=== PATIENT | female | born 1965 | race Two or more races ===

== ENCOUNTER 2019-03-13 11:36 | Emergency (ER) | payer OTHER ==
[~2019-03-13] VITALS: Ht 167.6 cm; Wt 73.5 kg
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
[2019-03-13] MEDS: KETOROLAC 30 MG/ML VIAL. IM ONE (12:15)
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
[2019-03-13] MEDS ORDERED: MELO7.5T29 PO (13:10)
[2019-03-13] MEDS ORDERED: ORPH-16 PO (13:10)
[2019-03-13 13:40] VITALS: BP 135/90
== END 2019-03-13 13:36 | disposition home or self-care (01) ==
LOC: ER 11:40
DX: S16.1XXA Strain of muscle, fascia and tendon at neck level, initial encounter (principal); S20.211A Contusion of right front wall of thorax, initial encounter; F41.9 Anxiety disorder, unspecified; J45.909 Unspecified asthma, uncomplicated; F32.9 Major depressive disorder, single episode, unspecified; K21.9 Gastro-esophageal reflux disease without esophagitis; E78.00 Pure hypercholesterolemia, unspecified; I10 Essential (primary) hypertension; F17.210 Nicotine dependence, cigarettes, uncomplicated; V89.2XXA Person injured in unspecified motor-vehicle accident, traffic, initial encounter; Y93.89 Activity, other specified; Y92.488 Other paved roadways as the place of occurrence of the external cause; Y99.8 Other external cause status
CPT/HCPCS: 71101; 96372; 99284; J1885